=== PATIENT | female | born 1975 | race Two or more races ===

== ENCOUNTER 2020-07-10 10:19 | Outpatient (CLI) | payer OTHER ==
[2020-07-10 10:47] LABS: ALBUMIN 3.8 g/dL (3.4-5.0); ANION GAP 4 mmol/L (5-15); CALCIUM 8.4 mg/dL (8.5-10.1); CHLORIDE 108 mmol/L (98-107)
[2020-07-10 10:52] LABS: ALANINE AMINOTRANSFERASE 18 U/L (12-78); ALKALINE PHOSPHATASE 66 U/L (45-117); BILIRUBIN,TOTAL 0.4 mg/dL (0.2-1.0); CHOL/HDL RATIO 2.7; CHOLESTEROL, TOTAL 126 mg/dL (140-239); CREATININE 0.53 mg/dL (0.55-1.02); HDL CHOL % 37 % (28-40); HDL CHOLESTEROL (DIRECT) 46 mg/dL (40-60); TOTAL PROTEIN 7.2 g/dL (6.4-8.2)
[2020-07-11 11:04] LABS: LDL CHOLESTEROL,CALCULATED 66 mg/dL (54-169); LDL/HDL RATIO 1.4 (0.5-3.0); TRIGLYCERIDES 71 mg/dL (50-200); VLDL CHOLESTEROL 14 mg/dL (0-25)
== END 2020-07-10 23:59 | disposition home or self-care (01) ==
LOC: LAB 10:19
PROVIDERS: ATTEND Family Medicine
DX: R73.09 Other abnormal glucose (principal); E78.6 Lipoprotein deficiency
CPT/HCPCS: 36415; 80053; 80061; 83036